=== PATIENT | male | born 1975 | race Caucasian/White ===

== ENCOUNTER 2021-06-10 13:22 | Emergency (ER) | payer SELFPAY ==
--- NOTE | 2021-06-10 17:36 | NUR ---
n/a 1530 n/a 1546 n/a 1557
== END 2021-06-10 17:36 | disposition left against medical advice (07) ==
LOC: ER 13:22
DX: F41.9 Anxiety disorder, unspecified (principal); Z53.21 Procedure and treatment not carried out due to patient leaving prior to being seen by health care provider

== ENCOUNTER 2023-06-15 12:13 | Inpatient (IN) | payer MEDICAID ==
[~2023-06-15] VITALS: Ht 185.4 cm; Wt 70.0 kg
[~2023-06-15 12:13] MED LIST: FOLI0.4T6 PO; HYDR-3686 PO; LORA-269 PO; MAGN400C PO; MULT-1219 PO; THIA50TA10 PO
[2023-06-15] MEDS ORDERED: LORazepam 2 mg/ml vial IV ONE ×4 (12:20→16:50)
[2023-06-15] MEDS ORDERED: normal saline 1000ml 1,000 ML IV ONE ×2 (13:35→16:55)
[2023-06-15] MEDS ORDERED: normal saline 1000ML IV soln IVB ONE (13:35)
[2023-06-15 14:08] LABS: BASOPHILS % (AUTO) 0.5 % (0-1); EOSINOPHILS % (AUTO) 0 % (0-6); HEMATOCRIT 35.9 % (42.0-52.0); HEMOGLOBIN 11.8 g/dl (14.0-17.9); LYMPHOCYTES # (AUTO) 0.4 X10'3 (1.1-4.8); LYMPHOCYTES % (AUTO) 4.8 % (21-51); MEAN CORPUSCULAR HEMOGLOBIN 28.9 PG (27.0-31.0); MEAN CORPUSCULAR HGB CONC 32.9 g/dL (33.0-36.5); MEAN CORPUSCULAR VOLUME 87.8 FL (78-98); MEAN PLATELET VOLUME 8.3 FL (7.4-10.4); MONOCYTES # (AUTO) 0.7 X10'3 (0-0.9); MONOCYTES % (AUTO) 7.8 % (2-12); NEUTROPHILS # (AUTO) 7.6 X10'3 (1.8-7.7); NEUTROPHILS % (AUTO) 86.9 % (42-75); PLATELET COUNT 136 X10'3 (140-440); RED BLOOD COUNT 4.08 X10'6 (4.70-6.10); RED CELL DISTRIBUTION WIDTH 19.1 % (11.5-14.5); WHITE BLOOD COUNT 8.7 X10'3 (4.5-11.0)
[2023-06-15 14:18] LABS: AMMONIA < 10 UMOL/L (11-32)
[2023-06-15 14:23] LABS: ALANINE AMINOTRANSFERASE 151 U/L (12-78); ALBUMIN 4.2 G/DL (3.4-5.0); ALBUMIN/GLOBULIN RATIO 1.2 (1.1-1.5); ALKALINE PHOSPHATASE 82 IU/L (46-116); ANION GAP 14 (8-16); ASPARTATE AMINO TRANSFERASE 111 U/L (10-37); BILIRUBIN,TOTAL 0.9 MG/DL (0.1-1.0); BLOOD UREA NITROGEN 13 MG/DL (7-18); BUN/CREATININE RATIO 18.6 (10.0-20.0); CALCIUM 9.5 MG/DL (8.5-10.1); CHLORIDE 97 MMOL/L (99-107); GLUCOSE 176 MG/DL (70-104); POTASSIUM 3.6 MMOL/L (3.5-5.1); SODIUM 135 MMOL/L (135-145); TOTAL CARBON DIOXIDE 24.5 MMOL/L (24-32); TOTAL PROTEIN 7.8 G/DL (6.4-8.2); eCRCL 132 ML/MIN; eGFR > 90 ML/MIN
[2023-06-15 14:25] LABS: LACTIC SEPSIS 2.3 MMOL/L (0.4-2.0)
[2023-06-15 14:26] LABS: ETHANOL < 10 MG/DL (<10)
[2023-06-15 15:36] LABS: BILIRUBIN,URINE NEGATIVE (Neg); CLARITY,URINE SLIGHTLY CLOUDY (Clear); COLOR,URINE YELLOW (Yellow); GLUCOSE, URINE 250 mg/dl (Neg); KETONES,URINE >=80 mg/dl (Neg); LEUKOCYTE ESTERASE ,URINE NEGATIVE (Neg); NITRITES, URINE NEGATIVE (Neg); OCCULT BLOOD,URINE SMALL (Neg); PROTEIN,URINE 100 mg/dl (Neg); URINE AMPHETAMINE SCREEN NEGATIVE (Neg); URINE BARBITUATE SCREEN NEGATIVE (Neg); URINE BENZODIAZEPINES SCREEN NEGATIVE (Neg); URINE CANNABINOID SCREEN NEGATIVE (Neg); URINE COCAINE SCREEN NEGATIVE (Neg); URINE METHADONE SCREEN NEGATIVE (Neg); URINE OPIATE SCREEN NEGATIVE (Neg); URINE PHENCYCLIDINE SCREEN NEGATIVE (Neg)
[2023-06-15 15:54] LABS: SQUAMOUS EPITHELIAL CELL,UR FEW /LPF (FEW); UA COLLECTION TYPE CLN CATCH MIDSTREAM
[2023-06-15 15:55] LABS: BACTERIA,URINE FEW /HPF (Neg); WBC,URINE 0-4 /HPF (0-4)
[2023-06-15] MEDS ORDERED: haloperidol lactate 5mg/ml inj IM ONE (16:25)
[2023-06-15] MEDS ORDERED: chlordiazePOXIDE 25mg capsule PO ONE (16:30)
[2023-06-15] MEDS ORDERED: magnesium Cl slow-release 64mg tablet PO PRN (16:45)
[2023-06-15] MEDS ORDERED: dextrose 50%-water 50ml dispensing syringe IV PRN (16:45)
[2023-06-15] MEDS: normal saline 1000ml 1,000 ML IV SCH (16:45)
[2023-06-15] MEDS ORDERED: potassium Cl 40MEQ/1/2NS 520ml 520 ML IV PRN (16:45)
[2023-06-15] MEDS ORDERED: magnesium 2GM in 50ml NS 50 ML IV PRN (16:45)
[2023-06-15] MEDS ORDERED: LORazepam 2 mg/ml vial IV PRN (16:45)
[2023-06-15] MEDS ORDERED: hydrALAZINE 20mg/ml inj. IV PRN (16:45)
[2023-06-15] MEDS ORDERED: acetaminophen 325mg tablet PO PRN (16:45)
[2023-06-15] MEDS ORDERED: haloperidol lactate 5mg/ml inj IM PRN (16:45)
[2023-06-15] MEDS ORDERED: magnesium hydroxide 30ml (MOM) UD suspension PO PRN (16:45)
[2023-06-15] MEDS ORDERED: potassium Cl 20 mEq SR tablet PO PRN (16:45)
[2023-06-15] MEDS ORDERED: ondansetron/PF 4mg/2ml inj IV PRN (16:45)
[2023-06-15] MEDS ORDERED: magnesium 4gm in 100ml NS 100 ML IV PRN (16:45)
[2023-06-15] MEDS ORDERED: mag hydrox/Alum hydrox/simeth 30ml oral suspension PO PRN (16:45)
[2023-06-15] MEDS ORDERED: magnesium 2GM in 50ml NS 50 ML IV ONE (16:55)
[2023-06-15] MEDS: folic acid 1mg/0.2ml inj IV SCH (16:58)
[2023-06-15] MEDS ORDERED: propofol 10mg/ml 20ml vial IV ONE (17:15)
[2023-06-15] MEDS: K and/or MAG REPLACEMENT MC SCH (20:00)
[2023-06-15] MEDS: docusate sod 100mg capsule PO SCH (20:00)
[2023-06-15] MEDS: thiamine 100mg/ml 2ml inj. IV SCH (21:16)
[2023-06-16] VITALS (7 sets, daily range): BP systolic 120–139; BP diastolic 85–97; PULSE 80–104; RESP 12–24; TEMP 97.5–98.9; O2SAT 95–99
[2023-06-16] MEDS: LORazepam 2 mg/ml vial IV PRN ×4 (00:42→21:56)
[2023-06-16 09:21] LABS: BASOPHILS % (AUTO) 0.6 % (0-1); EOSINOPHILS # (AUTO) 0.1 X10'3 (0-0.9); EOSINOPHILS % (AUTO) 2.4 % (0-6); HEMATOCRIT 35.6 % (42.0-52.0); HEMOGLOBIN 11.4 g/dl (14.0-17.9); LYMPHOCYTES # (AUTO) 0.9 X10'3 (1.1-4.8); LYMPHOCYTES % (AUTO) 17.5 % (21-51); MEAN CORPUSCULAR HEMOGLOBIN 28.6 PG (27.0-31.0); MEAN CORPUSCULAR HGB CONC 32.2 g/dL (33.0-36.5); MEAN CORPUSCULAR VOLUME 88.8 FL (78-98); MEAN PLATELET VOLUME 8.1 FL (7.4-10.4); MONOCYTES # (AUTO) 0.4 X10'3 (0-0.9); MONOCYTES % (AUTO) 6.9 % (2-12); NEUTROPHILS # (AUTO) 3.7 X10'3 (1.8-7.7); NEUTROPHILS % (AUTO) 72.6 % (42-75); PLATELET COUNT 108 X10'3 (140-440); RED CELL DISTRIBUTION WIDTH 19.2 % (11.5-14.5); WHITE BLOOD COUNT 5.1 X10'3 (4.5-11.0)
[2023-06-16] MEDS: thiamine 100mg/ml 2ml inj. IV SCH ×3 (09:30→21:51)
[2023-06-16] MEDS: docusate sod 100mg capsule PO SCH ×2 (09:30→20:00)
[2023-06-16] MEDS: multivitamins, therapeutics tablet PO SCH (09:30)
[2023-06-16 09:34] LABS: APTT 26 SECONDS (22-32); PROTHROMBIN TIME 10.9 SECONDS (9.0-12.0)
[2023-06-16 10:02] LABS: ALANINE AMINOTRANSFERASE 133 U/L (12-78); ALBUMIN 3.6 G/DL (3.4-5.0); ALKALINE PHOSPHATASE 80 IU/L (46-116); AMYLASE 63 U/L (25-115); ANION GAP 10 (8-16); ASPARTATE AMINO TRANSFERASE 123 U/L (10-37); BLOOD UREA NITROGEN 7 MG/DL (7-18); BUN/CREATININE RATIO 10.9 (10.0-20.0); CALCIUM 8.5 MG/DL (8.5-10.1); CHLORIDE 97 MMOL/L (99-107); CREATININE 0.64 MG/DL (0.60-1.10); FERRITIN 32 NG/ML (26-388); GLUCOSE 155 MG/DL (70-104); LIPASE 65 U/L (16-77); MAGNESIUM 1.8 MG/DL (1.5-2.4); PHOSPHORUS 2.8 MG/DL (2.3-4.5); SODIUM 132 MMOL/L (135-145); TOTAL CARBON DIOXIDE 24.7 MMOL/L (24-32); TOTAL PROTEIN 7.1 G/DL (6.4-8.2); eCRCL 144 ML/MIN; eGFR > 90 ML/MIN
[2023-06-16 10:21] LABS: POTASSIUM 2.8 MMOL/L (3.5-5.1)
[2023-06-16] MEDS: potassium Cl 20 mEq SR tablet PO PRN ×2 (10:25→20:27)
[2023-06-16 11:16] LABS: % IRON SATURATION 20 % (11-46); IRON 66 UG/DL (53-167); TOTAL IRON BINDING CAPACITY 322 UG/DL (259-388)
[2023-06-16] MEDS: normal saline 1000ml 1,000 ML IV SCH (12:45)
[2023-06-16] MEDS: chlordiazePOXIDE 25mg capsule PO SCH ×2 (15:59→20:26)
[2023-06-16 16:24] LABS: HEMOGLOBIN A1C 4.5 % (4.5-6.2)
[2023-06-16] MEDS ORDERED: THIA100T70 PO (17:14)
[2023-06-16] MEDS ORDERED: VITAMIN D PO (17:14)
[2023-06-16] MEDS ORDERED: VITA400T10 PO (17:14)
[2023-06-16] MEDS ORDERED: MAGN400T39 PO (17:15)
[2023-06-16] MEDS: K and/or MAG REPLACEMENT MC SCH (20:00)
[2023-06-17] VITALS (7 sets, daily range): BP systolic 123–144; BP diastolic 78–101; PULSE 74–90; RESP 11–18; TEMP 98–98.9; O2SAT 96–100
[2023-06-17 07:57] LABS: APTT 24 SECONDS (22-32); INR 0.9 INR; PROTHROMBIN TIME 10.1 SECONDS (9.0-12.0)
[2023-06-17] MEDS: K and/or MAG REPLACEMENT MC SCH ×2 (08:00→20:00)
[2023-06-17] MEDS: folic acid 1mg/0.2ml inj IV SCH ×2 (08:00→10:25)
[2023-06-17] MEDS: docusate sod 100mg capsule PO SCH ×2 (08:00→20:00)
[2023-06-17 08:02] LABS: BASOPHILS % (AUTO) 0.4 % (0-1); EOSINOPHILS # (AUTO) 0.1 X10'3 (0-0.9); EOSINOPHILS % (AUTO) 2.4 % (0-6); HEMOGLOBIN 11.9 g/dl (14.0-17.9); LYMPHOCYTES # (AUTO) 1.2 X10'3 (1.1-4.8); LYMPHOCYTES % (AUTO) 20.4 % (21-51); MEAN CORPUSCULAR HEMOGLOBIN 28.9 PG (27.0-31.0); MEAN CORPUSCULAR HGB CONC 31.4 g/dL (33.0-36.5); MEAN PLATELET VOLUME 8.3 FL (7.4-10.4); MONOCYTES # (AUTO) 0.5 X10'3 (0-0.9); MONOCYTES % (AUTO) 9.1 % (2-12); NEUTROPHILS # (AUTO) 3.9 X10'3 (1.8-7.7); NEUTROPHILS % (AUTO) 67.7 % (42-75); PLATELET COUNT 102 X10'3 (140-440); RED BLOOD COUNT 4.12 X10'6 (4.70-6.10); RED CELL DISTRIBUTION WIDTH 19.7 % (11.5-14.5); WHITE BLOOD COUNT 5.8 X10'3 (4.5-11.0)
[2023-06-17 08:04] LABS: ALANINE AMINOTRANSFERASE 129 U/L (12-78); ALBUMIN 3.4 G/DL (3.4-5.0); ALBUMIN/GLOBULIN RATIO 0.9 (1.1-1.5); ALKALINE PHOSPHATASE 87 IU/L (46-116); AMYLASE 59 U/L (25-115); ANION GAP 13 (8-16); ASPARTATE AMINO TRANSFERASE 116 U/L (10-37); BILIRUBIN,TOTAL 0.8 MG/DL (0.1-1.0); BLOOD UREA NITROGEN 12 MG/DL (7-18); BUN/CREATININE RATIO 21.1 (10.0-20.0); CALCIUM 8.5 MG/DL (8.5-10.1); CHLORIDE 104 MMOL/L (99-107); CREATININE 0.57 MG/DL (0.60-1.10); GLUCOSE 95 MG/DL (70-104); LIPASE 54 U/L (16-77); MAGNESIUM 1.9 MG/DL (1.5-2.4); PHOSPHORUS 3.9 MG/DL (2.3-4.5); SODIUM 138 MMOL/L (135-145); TOTAL CARBON DIOXIDE 21.4 MMOL/L (24-32); TOTAL PROTEIN 7.1 G/DL (6.4-8.2); eCRCL 162 ML/MIN; eGFR > 90 ML/MIN
[2023-06-17 08:16] LABS: POTASSIUM 3.9 MMOL/L (3.5-5.1)
[2023-06-17] MEDS: normal saline 1000ml 1,000 ML IV SCH (08:45)
[2023-06-17 09:11] LABS: ANISOCYTOSIS 2+; HYPOCHROMASIA 1+; PLATELET ESTIMATE DECREASED; POLYCHROMASIA 1+; TEAR DROP CELLS FEW
[2023-06-17] MEDS: multivitamins, therapeutics tablet PO SCH (10:24)
[2023-06-17] MEDS: chlordiazePOXIDE 25mg capsule PO SCH ×2 (10:25→19:46)
[2023-06-17] MEDS: thiamine 100mg/ml 2ml inj. IV SCH ×3 (10:25→19:54)
[2023-06-17 11:16] LABS: HBSAG SCREEN Negative (Negative); HEP A AB, IGM Negative (Negative); HEP B CORE AB, IGM Negative (Negative); HEPATITIS C VIRUS ANTIBODY Non Reactive (Non Reactive)
[2023-06-18] MEDS: normal saline 1000ml 1,000 ML IV SCH (04:45)
[2023-06-18 06:30] VITALS: BP 124/92; PULSE 72; RESP 14; TEMP 97.9; O2SAT 99
[2023-06-18 06:37] LABS: APTT 21 SECONDS (22-32); PROTHROMBIN TIME 9.8 SECONDS (9.0-12.0)
[2023-06-18 06:45] LABS: INR 0.9 INR
[2023-06-18 06:54] LABS: ALANINE AMINOTRANSFERASE 171 U/L (12-78); ALBUMIN 3.5 G/DL (3.4-5.0); ALBUMIN/GLOBULIN RATIO 0.9 (1.1-1.5); ALKALINE PHOSPHATASE 83 IU/L (46-116); AMYLASE 72 U/L (25-115); ANION GAP 10 (8-16); ASPARTATE AMINO TRANSFERASE 163 U/L (10-37); BILIRUBIN,TOTAL 0.6 MG/DL (0.1-1.0); BLOOD UREA NITROGEN 11 MG/DL (7-18); BUN/CREATININE RATIO 19.6 (10.0-20.0); CHLORIDE 102 MMOL/L (99-107); CREATININE 0.56 MG/DL (0.60-1.10); GLUCOSE 89 MG/DL (70-104); LIPASE 61 U/L (16-77); MAGNESIUM 1.7 MG/DL (1.5-2.4); POTASSIUM 3.7 MMOL/L (3.5-5.1); SODIUM 137 MMOL/L (135-145); TOTAL CARBON DIOXIDE 25.5 MMOL/L (24-32); TOTAL PROTEIN 7.3 G/DL (6.4-8.2); eCRCL 165 ML/MIN; eGFR > 90 ML/MIN
[2023-06-18 07:06] LABS: BASOPHILS % (AUTO) 0.8 % (0-1); EOSINOPHILS # (AUTO) 0.2 X10'3 (0-0.9); EOSINOPHILS % (AUTO) 3.1 % (0-6); HEMOGLOBIN 11.7 g/dl (14.0-17.9); LYMPHOCYTES # (AUTO) 1.2 X10'3 (1.1-4.8); LYMPHOCYTES % (AUTO) 22.2 % (21-51); MEAN CORPUSCULAR HEMOGLOBIN 29.3 PG (27.0-31.0); MEAN CORPUSCULAR HGB CONC 32.5 g/dL (33.0-36.5); MEAN CORPUSCULAR VOLUME 90.1 FL (78-98); MEAN PLATELET VOLUME 8.6 FL (7.4-10.4); MONOCYTES # (AUTO) 0.6 X10'3 (0-0.9); MONOCYTES % (AUTO) 10.3 % (2-12); NEUTROPHILS # (AUTO) 3.4 X10'3 (1.8-7.7); NEUTROPHILS % (AUTO) 63.6 % (42-75); PLATELET COUNT 112 X10'3 (140-440); RED BLOOD COUNT 3.99 X10'6 (4.70-6.10); RED CELL DISTRIBUTION WIDTH 19.3 % (11.5-14.5); WHITE BLOOD COUNT 5.4 X10'3 (4.5-11.0)
[2023-06-18] MEDS ORDERED: folic acid 1mg tablet PO SCH (08:00)
[2023-06-18] MEDS ORDERED: thiamine 100mg tablet PO SCH (08:00)
[2023-06-18] MEDS: docusate sod 100mg capsule PO SCH (08:22)
[2023-06-18] MEDS: chlordiazePOXIDE 25mg capsule PO SCH (08:22)
[2023-06-18] MEDS: multivitamins, therapeutics tablet PO SCH (08:22)
[2023-06-18] MEDS: K and/or MAG REPLACEMENT MC SCH (08:23)
[2023-06-18 10:30] VITALS: BP 120/76; PULSE 73; RESP 14; TEMP 98.2; O2SAT 94
[2023-06-18] MEDS ORDERED: calcium acetate 667mg (PhosLO) capsule PO ONE (13:35)
[2023-06-18] MEDS ORDERED: MULT-1085 PO (13:50)
[2023-06-18] MEDS ORDERED: FOLI0.4T14 PO (13:50)
[2023-06-18] MEDS ORDERED: CHLO25CA10 PO (13:50)
[2023-06-18] MEDS ORDERED: THIA100T70 PO (13:50)
[2023-06-18 15:00] VITALS: BP 122/79; PULSE 70; RESP 16; TEMP 98.6; O2SAT 99
== END 2023-06-18 15:15 | disposition home or self-care (01) | DRG 53 ==
LOC: ER 12:13 → ED HOLD 16:50 → PCU 3S 06-16 00:24
PROVIDERS: ADMIT Family Medicine; ATTEND Family Medicine
DX: R56.9 Unspecified convulsions (principal); F10.231 Alcohol dependence with withdrawal delirium; E87.1 Hypo-osmolality and hyponatremia; S43.005A Unspecified dislocation of left shoulder joint, initial encounter; K76.0 Fatty (change of) liver, not elsewhere classified; D64.9 Anemia, unspecified; E87.6 Hypokalemia; E86.0 Dehydration; R03.0 Elevated blood-pressure reading, without diagnosis of hypertension; F41.9 Anxiety disorder, unspecified; W18.39XA Other fall on same level, initial encounter; R74.01 Elevation of levels of liver transaminase levels; Z79.899 Other long term (current) drug therapy; Y93.89 Activity, other specified; Y92.89 Other specified places as the place of occurrence of the external cause; Y99.8 Other external cause status
CPT/HCPCS: 36415; 70450; 71045; 73030; 76700; 80053; 80074; 80305; 80320; 81001; 82140; 82150; 82607; 82728; 82948; 83036; 83540; 83550; 83605; 83690; 83735; 84100; 84132; 84484; 85008; 85025; 85610; 85730; 87040; 87081; 93005; 94760; 97110; 97161; 97530; 97535; 99285; A4565; A4620; A6258; G0378; J1630; J2060; J2704; J3411; J3475; J3490; J7030